=== PATIENT | female | born 1995 | race Caucasian/White ===

== ENCOUNTER → 2021-02-17 16:30 | Outpatient (CLI) | payer OTHER, SELFPAY ==
[2021-02-17 18:11] LABS: HCG,Quantitative 14605 mIU/ml (0-5.42)
== END ==
PROVIDERS: Visit Provider Obstetrics & Gynecology
DX: Z34.90 Encounter for supervision of normal pregnancy, unspecified, unspecified trimester (principal)
CPT/HCPCS: 36415; 84702

== ENCOUNTER → 2021-02-19 11:07 | Outpatient (CLI) | payer OTHER, SELFPAY ==
[2021-02-19 12:56] LABS: HCG,Quantitative 19558 mIU/ml (0-5.42)
== END ==
PROVIDERS: Visit Provider Obstetrics & Gynecology
DX: Z34.90 Encounter for supervision of normal pregnancy, unspecified, unspecified trimester (principal)
CPT/HCPCS: 36415; 84702

== ENCOUNTER → 2021-03-04 12:46 | Outpatient (CLI) | payer OTHER, SELFPAY ==
--- NOTE | 2021-03-04 12:47 | US_ITS ---
PROCEDURE: US OB <= 14 WEEKS FETUS CLINICAL INDICATION: Dates COMPARISON: No exams were available for comparison FINDINGS: An intrauterine gestational sac is present with a pole with a crown-rump length of 1.24cm correlating to gestational age of 7weeks 4days. heart tones are present with an FHR of 163bpm. Yolk sac is noted. IMPRESSION: Live IUP at 7 weeks 4 days. Estimated due date by Ultrasound is 10/17/2021 Dictated by: Venkata Rogers MD 03/04/2021 17:48 Venkata Rogers MD in [place] 03/04/2021 17:48
== END ==
PROVIDERS: PCP Family Medicine; Visit Provider Obstetrics & Gynecology
DX: Z34.90 Encounter for supervision of normal pregnancy, unspecified, unspecified trimester (principal)
CPT/HCPCS: 76801

== ENCOUNTER → 2021-03-06 09:43 | Outpatient (CLI) | payer OTHER, SELFPAY | PROVIDERS: Visit Provider Obstetrics & Gynecology | DX: R09.89 Other specified symptoms and signs involving the circulatory and respiratory systems (principal) | CPT/HCPCS: 36415; 84443 ==

== ENCOUNTER 2021-03-16 10:20 | Emergency (ER) | payer OTHER, SELFPAY ==
[2021-03-16 10:21] VITALS: BP 127/77; PULSE 104; RESP 18; TEMP 36.9; O2SAT 99; BMI 30.9
--- NOTE | 2021-03-16 10:32 | XR_ITS ---
PROCEDURE: XR CHEST PORTABLE CLINICAL HISTORY: RUQ pain Right-sided chest pain COMPARISON: No exams were available for comparison FINDINGS: The cardiomediastinal silhouette and pulmonary vascularity are within normal limits. The lungs are clear without infiltrates, suspicious nodules, or pleural effusions. No acute bony abnormalities. IMPRESSION: No acute findings. Dictated by: Venkata Rogers MD 03/16/2021 10:55 Venkata Rogers MD in [place] 03/16/2021 10:55
--- NOTE | 2021-03-16 10:59 | ECG_ITS ---
APPROVED REPORT Exam: Resting ECG HR:91 bpm ECG Measurements Heart Rate 91 AXES AL 142 P -6 QRSd 88 QRS -34 QT 342 T 7 QTc 420 Conclusion Normal sinus rhythm Left axis deviation Low voltage QRS Abnormal ECG Electronically signed by : Schuyler Rivero, 03/16/2021 17:43:36
--- NOTE | 2021-03-16 11:04 | HMH.EDGENADL ---
ED Disposition Clinical Impression: RUQ abdominal pain Disposition: Home, Self-Care Condition on Discharge: Good Instructions: DI for Acute Abdominal Pain Referrals: Frances Bates [Primary Care Provider] - Time of Disposition: 12:19 - Critical Care Critical Care Time: No Attestation: On 03/16/21, the high probability of a clinically significant, sudden or life threatening deterioration of the following system(s) required my full and direct attention, intervention and personal management. The time I documented below is in addition to time spent performing reported procedures but includes the following listed in this critical care notation. Medical Decision Making - Medical Records Medical records reviewed: Yes: I reviewed the patient's medical records. - Nabil Inquiry Pt receiving controlled substance: No Vital Signs: 03/16/21 10:21 Temperature 98.4 F Temperature Source Oral Pulse Rate [Right Radial] 104 H Respiratory Rate 18 Blood Pressure [Right Arm] 127/77 Blood Pressure Mean [Right Arm] 93 Blood Pressure Source [Right Arm] Automatic Cuff Blood Pressure Position [Right Arm] Sitting 02 Sat by Pulse Oximetry 99 Oxygen Delivery Method Room Air - Lab Data Lab Results 03/16/21 10:55: WBC 10.5, RBC 4.70, Hgb 13.9, Hct 42.9, MCV 91.3, MCH 29.6, MCHC 32.4, RDW 13.4, Plt Count 227, MPV 8.3, Neut % (Auto) 75.5, Lymph % (Auto) 19.5, [place] % (Auto) 3.7, Eos % (Auto) 1.0, Baso % (Auto) 0.3, Neut # (Auto) 8.0 H, Lymph # (Auto) 2.1, [place] # (Auto) 0.4, Eos # (Auto) 0.1, Baso # (Auto) 0.0 03/16/21 10:55: Sodium 134 L, Potassium 3.6, Chloride 105, Carbon Dioxide 23, Anion Gap 9.6, BUN 4 L, Creatinine 0.50 L, Estimated Creat Clear 226, Estimated GFR 153, Est GFR ( Amer) 185, Glucose 95, Calcium 9.8, Total Bilirubin 0.5, AST 27, ALT 22, Alkaline Phosphatase 83, Total Protein 7.1, Albumin 4.1, Globulin 3.0, Albumin/Globulin Ratio 1.4 03/16/21 10:55: Troponin I < 0.01, Lipase 56 Result diagrams: 03/16/21 10:55 03/16/21 10:55 Orders (Tests/Meds): ORDERS Category Date Time Status US RUQ [US abdomen limited] Stat Exams 03/16/21 12:14 Ordered Troponin I Q3H Lab 03/16/21 13:45 Ordered Troponin I Q3H Lab 03/16/21 16:45 Ordered EKG Request [ECG Request by /Tova] Stat Y 03/16/21 10:32 Ordered Medical Decision Narrative: In summary this is a 25-year-old G1, P0 female presenting to the emergency department with right upper quadrant pain. Patient clinically stable on arrival. Vital signs within normal limits. Differential diagnoses include biliary tract obstruction, reflux, musculoskeletal pain. No left-sided chest pain to suggest ACS, myocarditis. She has minimal pain with inspiration, but is not dyspneic. PERC negative Initial laboratory results are reassuring. No leukocytosis. No elevation in bilirubin, alk phos, AST or ALT. Lipase within normal limits. Chest x-ray does not show pneumonia or other abnormality in the thorax. Right upper quadrant ultrasound obtained. Reassuring. No biliary ductal dilation or gallstones. Reassessment patient's pain significantly improved. She was able to tolerate oral intake. No nausea or vomiting. Counseled to monitor her symptoms and follow-up with her PCP. Stable for discharge. General Adult HPI - General Chief complaint: PAIN Stated complaint: pain, upper stomach and goes around to back Time Seen by Provider: 03/16/21 10:24 Mode of Arrival: Ambulatory Limitations: No Limitations Description of Symptoms (Recalled from ER Triage Doc. by RN): pt reports woke up yesterday morning with pain in R upper quadrant area R upper R breast, pt reports pain radiates around to R upper back. Pt reports pain is intermittent in nature. Pt denies cough, SOA, n/v. Pt reports she is 9 weeks , states Dr. Pandey advised her to get evaluated in ER for pain. - History of Present Illness HPI narrative: 25-year-old female presenting to the emergency department
[2021-03-16 11:13] LABS: Basophils % 0.3 % (0.1-2.0); Eosinophils # 0.1 K/mm3 (0.0-0.4); Hematocrit 42.9 % (37.0-47.0); Hemoglobin 13.9 g/dL (12.2-16.2); Lymphocytes # 2.1 K/mm3 (0.7-4.5); Lymphocytes % 19.5 % (10-50); Mean Corpuscular HGB Conc 32.4 g/dL (31.8-35.4); Mean Corpuscular Hemoglobin 29.6 pg (27.0-31.2); Mean Corpuscular Volume 91.3 fl (81-99); Mean Platelet Volume 8.3 fl (7.4-10.4); Monocytes # 0.4 K/mm3 (0.1-1.0); Monocytes % 3.7 % (1.7-9.3); Neutrophils % 75.5 % (37.0-80.0); Platelet Count 227 K/mm3 (142-424); Red Cell Distribution Width 13.4 % (11.5-17.5); White Blood Count 10.5 K/mm3 (4.8-10.8)
[2021-03-16 11:24] LABS: Lipase 56 U/L (23-300)
[2021-03-16 11:25] LABS: Alanine Aminotransferase 22 U/L (12-78); Albumin Level 4.1 g/dl (3.5-5.0); Albumin/Globulin Ratio 1.4 (1.1-1.8); Alkaline Phosphatase 83 U/L (38-126); Anion Gap 9.6 mEq/L (5-15); Aspartate Amino Transferase 27 U/L (14-36); Bilirubin,Total 0.5 mg/dl (0.2-1.3); Blood Urea Nitrogen 4 mg/dl (7-17); Calcium 9.8 mg/dl (8.4-10.2); Carbon Dioxide 23 mmol/L (22.0-30.0); Chloride 105 mmol/L (98-107); Creatinine Clearance Estimated 226 mL/min (50-200); Estimated Glomerular Filt Rate 153 ml/min (>60); GFR (African American) 185 ML/MIN (>60); Glucose 95 mg/dl (74-100); Potassium 3.6 mmoL/L (3.5-5.1); Sodium 134 mmol/L (136-145); Total Protein,Serum 7.1 g/dl (6.3-8.2)
[2021-03-16 11:49] LABS: Troponin I < 0.01 ng/ml (0.00-0.034)
--- NOTE | 2021-03-16 12:14 | US_ITS ---
PROCEDURE: US ABDOMEN LIMITED CLINICAL INDICATION: RUQ pain COMPARISON: No exams were available for comparison FINDINGS: PANCREAS: Unremarkable. No obvious mass or abnormal fluid collection. No ductal dilatation LIVER: No focal liver lesions demonstrated. Homogeneous echogenicity. No intrahepatic biliary ductal dilatation evident. There is appropriate direction of blood flow within a non dilated portal vein RIGHT KIDNEY: Unremarkable. Normal size and echogenicity. No hydronephrosis GALLBLADDER: No gallstones, gallbladder wall thickening, pericholecystic fluid, or biliary dilatation. IMPRESSION: Unremarkable limited abdominal ultrasound as detailed above disc Dictated by: Venkata Rogers MD 03/16/2021 13:18 Venkata Rogers MD in [place] 03/16/2021 13:18
--- NOTE | 2021-03-16 12:18 | PC.NURSE ---
PT GOING TO US
--- NOTE | 2021-03-16 12:29 | PC.NURSE ---
pt to ultrasound
--- NOTE | 2021-03-16 12:49 | PC.NURSE ---
pt return from ultrasound
[2021-03-16 12:59] VITALS: BP 126/81; PULSE 70; RESP 18; TEMP 36.9; O2SAT 99
== END 2021-03-16 12:59 | disposition home or self-care (01) ==
PROVIDERS: Emergency Provider Emergency Medicine; PCP Family Medicine
DX: R10.11 Right upper quadrant pain (principal); Z3A.09 9 weeks gestation of pregnancy
CPT/HCPCS: 71045; 76705; 80053; 83690; 84484; 85025; 93005; 99283

== ENCOUNTER → 2021-05-05 08:48 | Outpatient (CLI) | payer OTHER, SELFPAY ==
[2021-05-05 09:47] LABS: Basophils % 0.2 % (0.1-2.0); Eosinophils # 0.2 K/mm3 (0.0-0.4); Eosinophils % 2.5 % (0.1-12.0); Hematocrit 38.6 % (37.0-47.0); Hemoglobin 13.3 g/dL (12.2-16.2); Lymphocytes # 1.8 K/mm3 (0.7-4.5); Lymphocytes % 20.9 % (10-50); Mean Corpuscular HGB Conc 34.5 g/dL (31.8-35.4); Mean Corpuscular Hemoglobin 30.4 pg (27.0-31.2); Mean Corpuscular Volume 88.2 fl (81-99); Mean Platelet Volume 8.9 fl (7.4-10.4); Monocytes # 0.5 K/mm3 (0.1-1.0); Monocytes % 5.5 % (1.7-9.3); Neutrophils % 70.9 % (37.0-80.0); Platelet Count 163 K/mm3 (142-424); Red Blood Count 4.37 M/mm3 (4.20-5.40); Red Cell Distribution Width 13.2 % (11.5-17.5); White Blood Count 8.4 K/mm3 (4.8-10.8)
[2021-05-06 09:10] LABS: HIV Screen 4th Generation wRfx Non Reactive (Non Reactive)
[2021-05-06 09:13] LABS: Rubella Antibodies, IgG 8.71 index (Immune >0.99)
[2021-05-06 10:12] LABS: Hepatitis B Surface Antigen Negative (Negative); Hepatitis C Antibody <0.1 s/co ratio (0.0-0.9); Rapid Plasma Reagin Ab Titer Non Reactive (NonRea<1:1)
== END ==
PROVIDERS: Visit Provider Obstetrics & Gynecology
DX: Z34.90 Encounter for supervision of normal pregnancy, unspecified, unspecified trimester (principal)
CPT/HCPCS: 36415; 85025; 86592; 86703; 86762; 86850; 87340; 87380; G0432

== ENCOUNTER → 2021-06-02 14:16 | Outpatient (CLI) | payer OTHER, SELFPAY ==
--- NOTE | 2021-06-02 14:16 | US_ITS ---
PROCEDURE: US OB >= 14 WEEKS FETUS CLINICAL INDICATION: OB complete Anatomy exam COMPARISON: US US OB <= 14 WEEKS FETUS from 03/04/2021 FINDINGS: Single live fetus is present in cephalic presentation. heart and body motion noted. Cervix is closed measuring 4 cm. Placenta is posterior and grade 1. Complete survey performed and was unremarkable on the submitted images as in PACS. No discrete anomalies identified on survey imaging by technologist. Active fetus. Three-vessel cord with satisfactory umbilical cord insertion. 4- chamber heart noted. Survey of brain & ventricles Unremarkable. Face and neck survey unremarkable. Diaphragm and chest views unremarkable. Abdomen: Both kidneys noted and unremarkable. Stomach noted and satisfactory. Spine: Survey of the spine satisfactory with no anomalies identified nor imaged. Both arms and legs noted. Amniotic Fluid: Adequate. Maternal adnexa: No significant findings. Measurements: Average ultrasound age 20weeks 2days. Gestational Age 20weeks 2days Estimated due date by ultrasound age 1210/18/2021. Estimated weight 350g BPD = 20weeks 3days OFD = 20weeks 3days HC = 19weeks 5days AC = 20weeks 3days FL = 20weeks 4days Growth Percentile= 42% Heart Rate = 147bpm Cerebellum = 20weeks 4days Humerus = 20weeks 3days HC/AC is 1.13 CI is 0.79 FL/BPD is 0.71 FL/AC is 0.22 IMPRESSION: Live IUP in cephalic presentation with an average ultrasound age of 20 weeks 2 days. No obvious anomalies. Please see above for detail. Dictated by: Venkata Rogers MD 06/02/2021 18:33 Venkata Rogers MD in [place] 06/02/2021 18:33
== END ==
PROVIDERS: PCP Family Medicine; Visit Provider Obstetrics & Gynecology
DX: Z34.91 Encounter for supervision of normal pregnancy, unspecified, first trimester (principal)
CPT/HCPCS: 76805

== ENCOUNTER → 2021-07-15 10:30 | Outpatient (CLI) | payer OTHER, SELFPAY ==
[2021-07-15 11:19] LABS: Glucose,Fasting 87 mg/dl (74-100)
[2021-07-15 13:22] LABS: Glucose 1 Hour 128 mg/dL (74-100)
== END ==
PROVIDERS: Visit Provider Obstetrics & Gynecology
DX: Z34.90 Encounter for supervision of normal pregnancy, unspecified, unspecified trimester (principal)
CPT/HCPCS: 36415; 82951

== ENCOUNTER 2021-07-25 11:51 | Outpatient (CLI) | payer OTHER, SELFPAY ==
[2021-07-25 12:02] VITALS: BP 128/92; PULSE 88; RESP 18; TEMP 36.8; O2SAT 100; BMI 33.6
[2021-07-25 12:31] LABS: Appearance,Urine CLEAR (Clear); Bilirubin,Urine Negative (Negative); Blood, Urine Negative (Negative); Color,Urine YELLOW (Yellow); Glucose,Urine (UA) Negative (Negative); Ketones,Urine TRACE (Negative); Leukocyte Esterase,Urine Negative (Negative); Microscopic, Urine URINE MICROSCOPIC (MICROSCOPIC); Nitrate,Urine Negative (Negative); Protein,Urine Negative (Negative); Specific Gravity, Urine 1.015 (1.005-1.030)
[2021-07-25 12:39] LABS: Amorphous Sediment,Urine Trace /lpf; WBC,Urine Occasional #/hpf (0-3)
[2021-07-25 12:43] LABS: Barbiturates Screen,Urine Negative ng/ml (<200)
[2021-07-25 12:44] LABS: Amphetamine/Metha Screen,Urine Negative ng/ml (<1000); Benzodiazepines Screen,Urine Negative ng/ml (<200)
[2021-07-25 12:45] LABS: Cannabinoid Screen,Urine Negative ng/ml (<50)
[2021-07-25 12:46] LABS: Cocaine Screen,Urine Negative ng/ml (<300); Methadone Screen,Urine Negative ng/ml (<300)
[2021-07-25 12:47] LABS: Opiate Screen,Urine Negative ng/ml (<300)
[2021-07-25 12:48] LABS: Phencyclidine Screen,Urine Negative ng/ml (<25)
[2021-07-25 13:12] VITALS: BMI 31.2
== END 2021-07-25 12:55 | disposition home or self-care (01) ==
LOC: OBOUT 11:53 → OB 11:54
PROVIDERS: PCP Family Medicine; Visit Provider Nurse Practitioner Obstetrics & Gynecology
DX: O36.8130 Decreased fetal movements, third trimester, not applicable or unspecified (principal); Z3A.28 28 weeks gestation of pregnancy
CPT/HCPCS: 59025; 80305; 81001; G0463

== ENCOUNTER → 2021-09-16 09:25 | Outpatient (CLI) | payer OTHER, SELFPAY ==
--- NOTE | 2021-09-16 09:26 | US_ITS ---
PROCEDURE: US OB BIOPHYSICAL PROFILE CLINICAL INDICATION: Hypertension TECHNIQUE: FINDINGS: The following parameters are obtained: Single live fetus is present in cephalic presentation. Placenta is posterior and fundal in implantation and grade 2 Average ultrasound age is Average 33weeks 6days Estimated due date by ultrasound is 10/29/2021. Estimated weight is 2,215g. This is 7th percentile indicating intrauterine growth restriction BPD: 35weeks 5days OFD: 35weeks 5days HC: 34 weeks 2 days AC: 32 weeks 5 days FL: 34 weeks 6 days heart rate: 150bpm bpm. HC/AC: 1.07 Cephalic index: 0.75 FL/BPD: 0.81 FL/AC: 0.24 Amniotic fluid index: 10.07cm Qualitative AFV: 2 breathing movements: 2 Gross body movements: 2 Tone: 2 Biophysical profile score: 8 IMPRESSION: Live IUP in cephalic presentation at 33 weeks 6 days. Estimated weight is 2215 g which is 7th percentile indicating intrauterine growth restriction. Posterior and fundal grade 2 placenta Normal amniotic fluid index Biophysical profile 8 of 8 Dictated by: Venkata Rogers MD 09/17/2021 08:48 Venkata Rogers MD in [place] 09/17/2021 08:48
== END ==
PROVIDERS: Visit Provider Obstetrics & Gynecology
DX: Z34.90 Encounter for supervision of normal pregnancy, unspecified, unspecified trimester (principal)
CPT/HCPCS: 76816; 76819

== ENCOUNTER → 2021-09-21 17:04 | Outpatient (CLI) | payer OTHER, SELFPAY | PROVIDERS: Visit Provider Obstetrics & Gynecology | DX: Z34.90 Encounter for supervision of normal pregnancy, unspecified, unspecified trimester (principal) | CPT/HCPCS: 86403 ==

== ENCOUNTER → 2021-09-25 09:12 | Outpatient (CLI) | payer OTHER, SELFPAY ==
--- NOTE | 2021-09-25 09:13 | US_ITS ---
PROCEDURE: US OB BIOPHYSICAL PROFILE CLINICAL INDICATION: BPP TECHNIQUE: FINDINGS: Biometric measurements were not performed. There is a single live fetus which is in cephalic presentation. heart and body motion noted. Cervix is closed measuring 3 cm. The placenta is posterior and grade 2. No previa or abruption. Amniotic fluid index: 12.03cm Qualitative AFV: 2 breathing movements: 2 Gross body movements: 2 Tone: 2 Biophysical profile score: 8 IMPRESSION: Biophysical profile 8 of 8. ZOILA normal at 12 cm. Single live fetus in cephalic presentation. Posterior grade 2 placenta Dictated by: Venkata Rogers MD 09/25/2021 12:48 Venkata Rogers MD in [place] 09/25/2021 12:48
== END ==
PROVIDERS: PCP Family Medicine; Visit Provider Obstetrics & Gynecology
DX: O13.9 Gestational [pregnancy-induced] hypertension without significant proteinuria, unspecified trimester (principal)
CPT/HCPCS: 76819

== ENCOUNTER → 2021-10-04 12:36 | Outpatient (CLI) | payer OTHER, SELFPAY ==
[2021-10-04 13:14] LABS: Basophils % 0.3 % (0.1-2.0); Eosinophils # 0.2 K/mm3 (0.0-0.4); Eosinophils % 1.5 % (0.1-12.0); Hematocrit 36.9 % (37.0-47.0); Hemoglobin 11.9 g/dL (12.2-16.2); Lymphocytes # 2.1 K/mm3 (0.7-4.5); Lymphocytes % 19.3 % (10-50); Mean Corpuscular HGB Conc 32.2 g/dL (31.8-35.4); Mean Corpuscular Hemoglobin 28.7 pg (27.0-31.2); Mean Corpuscular Volume 89.1 fl (81-99); Mean Platelet Volume 10.9 fl (7.4-10.4); Monocytes # 0.5 K/mm3 (0.1-1.0); Monocytes % 4.3 % (1.7-9.3); Neutrophils % 74.7 % (37.0-80.0); Platelet Count 198 K/mm3 (142-424); Red Blood Count 4.14 M/mm3 (4.20-5.40); Red Cell Distribution Width 13.5 % (11.5-17.5); White Blood Count 10.7 K/mm3 (4.8-10.8)
[2021-10-04 13:30] LABS: Chloride 106 mmol/L (98-107); Potassium 3.7 mmoL/L (3.5-5.1); Sodium 135 mmol/L (136-145)
[2021-10-04 13:33] LABS: Alanine Aminotransferase 16 U/L (12-78); Albumin Level 3.3 g/dl (3.5-5.0); Albumin/Globulin Ratio 1.1 (1.1-1.8); Alkaline Phosphatase 227 U/L (38-126); Anion Gap 9.7 mEq/L (5-15); Aspartate Amino Transferase 22 U/L (14-36); Bilirubin,Total 0.3 mg/dl (0.2-1.3); Blood Urea Nitrogen 4 mg/dl (7-17); Calcium 9.2 mg/dl (8.4-10.2); Carbon Dioxide 23 mmol/L (22.0-30.0); Estimated Glomerular Filt Rate 152 ml/min (>60); GFR (African American) 183 ML/MIN (>60); Globulin 2.9 g/dL (1.3-3.2); Glucose 82 mg/dl (74-100); Total Protein,Serum 6.2 g/dl (6.3-8.2)
== END ==
PROVIDERS: PCP Family Medicine; Visit Provider Obstetrics & Gynecology
DX: Z01.812 Encounter for preprocedural laboratory examination (principal); Z20.822 Contact with and (suspected) exposure to COVID-19
CPT/HCPCS: 36415; 80053; 85025; C9803; U0003; U0005

== ENCOUNTER 2021-10-06 04:48 | Inpatient (IN) | payer OTHER, SELFPAY ==
--- NOTE | 2021-10-02 08:18 | SUR.PREOP ---
LM informing patient to come in for LABS on Sat or Sun
[2021-10-06] VITALS (7 sets, daily range): BP systolic 127–149; BP diastolic 81–97; PULSE 64–103; RESP 16–20; TEMP 36.7–37.3; O2SAT 98–100; BMI 30.4; BMI 32.4
[2021-10-06 05:54] LABS: Coronavirus 19, PCR Not Detected (NotDetected); Influenza A, PCR Not Detected (NotDetected); Influenza B, PCR Not Detected (NotDetected)
[2021-10-06 05:54] LABS: Microscopic, Urine URINE MICROSCOPIC (MICROSCOPIC)
[2021-10-06 06:07] LABS: Basophils # 0.1 K/mm3 (0-0.2); Basophils % 0.4 % (0.1-2.0); Eosinophils # 0.2 K/mm3 (0.0-0.4); Eosinophils % 1.2 % (0.1-12.0); Hematocrit 34.2 % (37.0-47.0); Hemoglobin 11.4 g/dL (12.2-16.2); Lymphocytes # 2.8 K/mm3 (0.7-4.5); Lymphocytes % 20.9 % (10-50); Mean Corpuscular HGB Conc 33.3 g/dL (31.8-35.4); Mean Corpuscular Hemoglobin 29.1 pg (27.0-31.2); Mean Corpuscular Volume 87.3 fl (81-99); Mean Platelet Volume 11.6 fl (7.4-10.4); Monocytes # 0.6 K/mm3 (0.1-1.0); Monocytes % 4.8 % (1.7-9.3); Neutrophils # 9.7 K/mm3 (1.8-7.8); Neutrophils % 72.7 % (37.0-80.0); Platelet Count 200 K/mm3 (142-424); Red Blood Count 3.92 M/mm3 (4.20-5.40); Red Cell Distribution Width 13.9 % (11.5-17.5); White Blood Count 13.4 K/mm3 (4.8-10.8)
[2021-10-06 06:15] LABS: Appearance,Urine CLEAR (Clear); Bilirubin,Urine Negative (Negative); Blood, Urine Negative (Negative); Color,Urine YELLOW (Yellow); Glucose,Urine (UA) Negative (Negative); Ketones,Urine 1+ (Negative); Leukocyte Esterase,Urine 1+ (Negative); Nitrate,Urine Negative (Negative); Protein,Urine Negative (Negative); Urobilinogen,Urine 0.2 EU/dl (0.2)
[2021-10-06 07:04] LABS: Bacteria,Urine 1+ /lpf; RBC,Urine Occasional #/hpf (0-3)
[2021-10-06 07:05] LABS: Blood Urea Nitrogen 4 mg/dl (7-17); Calcium 9.3 mg/dl (8.4-10.2); Carbon Dioxide 22 mmol/L (22.0-30.0); Chloride 107 mmol/L (98-107); Creatinine Clearance Estimated 235 mL/min (50-200); Estimated Glomerular Filt Rate 152 ml/min (>60); GFR (African American) 183 ML/MIN (>60); Glucose 80 mg/dl (74-100); Sodium 135 mmol/L (136-145)
[2021-10-06 07:35] LABS: Anion Gap 9.8 mEq/L (5-15); Potassium 3.8 mmoL/L (3.5-5.1)
--- NOTE | 2021-10-06 07:50 | HMH.HP ---
*Admission Date: 10/06/21 *Chief complaint: scheduled c section *History of present illness: 26 yo G1 @ 38 01/04 complicated by gestational hypertension and growth restriction current estimate of EFW 7% CPD on exam and patient declined a trial of labor Rh negative maternal status but rhogam deferred because cell free DNA showed negative rh mild anemia on admission [facility] History I have reviewed the patient's past medical history: Yes *Have you ever received a pneumonia vaccine?: No *Have you received a flu vaccine this season?: No Other Surgeries: No: Amputation: No Fractures: No - *Social History Smoking Status: Never smoker Alcohol Intake: never Substance Use Type: denies use *Occupational Status:: employed *Travel in the last 8 weeks: None Family Hx:: Hypertension, Hyperlipidemia, Thyroid Disorder Para: 0 Review of Systems - Review of Systems Review of systems:: pertinent systems reviewed and negative unless documented below - *Genitourinary Denies abnormal vaginal bleeding Meds Home Medications Medication Instructions Recorded Confirmed Type ondansetron 4 mg disintegrating 4 mg PO Q4H PRN #30 tab 03/06/21 10/06/21 Rx tablet docosahexaenoic acid 200 mg capsule 200 mg PO DAILY 05/05/21 10/06/21 History Labetalol HCl 100 mg PO BID 10/06/21 10/06/21 History Allergies Allergy/AdvReac Type Severity Reaction Status Date / Time egg Allergy Mild vomiting Verified 10/01/21 10:59 and diarrhea Exam Vital signs and Labs for Last 24 Hours: Temp Pulse Resp BP Pulse Ox 99.1 F 103 H 18 127/81 100 10/06/21 06:11 10/06/21 06:11 10/06/21 06:11 10/06/21 06:11 10/06/21 06:11 Laboratory Results - last 24 hr 10/06/21 05:25: WBC 13.4 H D, RBC 3.92 L, Hgb 11.4 L, Hct 34.2 L, MCV 87.3, MCH 29.1, MCHC 33.3, RDW 13.9, Plt Count 200, MPV 11.6 H, Neut % (Auto) 72.7, Lymph % (Auto) 20.9, [place] % (Auto) 4.8, Eos % (Auto) 1.2, Baso % (Auto) 0.4, Neut # (Auto) 9.7 H, Lymph # (Auto) 2.8, [place] # (Auto) 0.6, Eos # (Auto) 0.2, Baso # (Auto) 0.1 10/06/21 05:25: Sodium 135 L, Potassium 3.8, Chloride 107, Carbon Dioxide 22, Anion Gap 9.8, BUN 4 L, Creatinine 0.50 L, Estimated Creat Clear 235, Estimated GFR 152, Est GFR ( Amer) 183, Glucose 80, Calcium 9.3 10/06/21 05:25: Blood Type A Negative, Antibody Screen Negative 10/06/21 05:25: Urine Color Yellow, Urine Appearance Clear, Urine pH 6.0, Ur Specific [place] 1.020, Urine Protein Negative, Urine Glucose (UA) Negative, Urine Ketones 1+, Urine Blood Negative, Urine Nitrate Negative, Urine Bilirubin Negative, Urine Urobilinogen 0.2, Ur Leukocyte Esterase 1+ A, Urine RBC Occasional, Urine WBC 10-20, Ur Squamous Epith Cells 3-5, Urine Bacteria 1+ 10/06/21 05:30: SARS-CoV-2 (PCR) Not detected, Influenza A Untype (PCR) Not detected, Influenza Type B (PCR) Not detected I & O for Last 24 hours: Intake & Output 10/03/21 10/04/21 10/05/21 10/06/21 11:59 11:59 11:59 11:59 Weight 189 lb - Constitutional no acute distress - *Routine HEENT Exam Head: Present: normocephalic Eye: Present: EOMI ENT: Present: mucous membranes moist - *Routine Neck Exam Present: supple. Absent: lymphadenopathy - *Routine Respiratory Exam Present: CTA bilaterally - *Routine Cardiovascular Exam Present: RRR - *Routine Abdominal Exam Present: soft, normoactive bowel sounds. Absent: tenderness - *Routine Rectal Exam Rectal:: deferred - *Routine Genitalia Exam Genitalia:: other Comment:: narrow pelvic outlet - *Routine Extremities Exam Absent: cyanosis, clubbing, edema - *Routine Skin Exam Present: warm. Absent: rash - *Routine Neurological Exam Present: alert, oriented X3 Assessment and Plan (1) 38 weeks gestation of Status: Acute Category: Medical Code(s): Z3A.38 - 38 weeks gestation of (2) Gestational hypertension Status: Acute Category: Medical Code(s): O13.9 - Gestation
[2021-10-06 07:57] LABS: Amphetamine/Metha Screen,Urine Negative ng/ml (<1000); Barbiturates Screen,Urine Negative ng/ml (<200); Benzodiazepines Screen,Urine Negative ng/ml (<200); Cannabinoid Screen,Urine Negative ng/ml (<50); Cocaine Screen,Urine Negative ng/ml (<300); Methadone Screen,Urine Negative ng/ml (<300); Opiate Screen,Urine Negative ng/ml (<300); Phencyclidine Screen,Urine Negative ng/ml (<25)
--- NOTE | 2021-10-06 08:57 | P.PN_ITS ---
[facility] Anesthesia Record Part I Intake, IV Amount: 2,500 Estimated blood loss (mL): 700 Urine output (mL): 100 Blood Pressure: 138/94 SaO2: 98 Pulse Rate: 67 Respiratory Rate: 16 Temperature: 98.1 F Patient is:: Awake, Stable Stable to PACU at:: 08:53
--- NOTE | 2021-10-06 08:57 | HMH.ANESCL ---
[facility] Anesthesia Checklist - Patient Identification Patient Identification: Arm Band, Verbal (Name & ) - Structural Data Admitted From: Home Planned Operative Procedure/s: C section Consent for Planned Operative Procedure(s) Verified: Yes Verified Documents: Surgical Consent - NPO Status Verified Time NPO: 19:00 - Chart Verification Results Verified: CBC - Cardiovascular Assessment Heart Sounds: S1 & S2 - Airway Assessment C-Spine Mobility Assessed: Yes TMJ Mobility Assessed: Yes Dentition: Good Dentition - Neurological Assessment Level of Consciousness: Awake, Alert, Appropriate - Anesthesia Plan Anesthesia Risk discussed: Yes ASA Class: II Anesthesia Type: Spinal [facility] History I have reviewed the patient's past medical history: Yes *Have you ever received a pneumonia vaccine?: No *Have you received a flu vaccine this season?: No Anesthesia experience/problems:: none Other Surgeries: No: Amputation: No Fractures: No - *Social History Smoking Status: Never smoker Alcohol Intake: never Substance Use Type: denies use *Occupational Status:: employed *Travel in the last 8 weeks: None Family Hx:: Hypertension, Hyperlipidemia, Thyroid Disorder Para: 0
--- NOTE | 2021-10-06 08:59 | P.OP_ITS ---
Date of procedure: 10/06/21 Pre-op Diagnosis:: 1. 38 3/7 2. growth restriction 7% 3. Gestational hypertension 4. Maternal CPD Post-op Diagnosis:: same Procedure performed:: Primary C Section Surgeon:: Marisabel Pandey MD Electromyographic Technician(s):: Angel Delcid COOLING ROOM ATTENDANT:: Other Anesthesia: spinal Estimated blood loss (mL): 700 Operative findings:: vigorous male infant in vertex presentation nuchal cord x 1 meconium stained amniotic fluid Operative note:: The patient was taken to the OR and spinal was administered without difficulty. She was prepped and draped in normal sterile fashion. A pfannenstiel skin incision was made with the scalpel and carried down to the fascia. The fascia was incised in the midline and sharply dissected off the rectus muscles. The muscles were in the midline and the peritoneum was entered sharply and extended bluntly. The Ricco-O self retaining retractor was placed in the abdomen and a bladder flap was created. The uterus was incised in the lower uterine segment in a transverse fashion and extended bluntly. Amniotomy was performed and meconium stained amniotic fluid noted. The was delivered in controlled fashion, without complication or shoulder dystocia. A nuchal cord x 1 was reduced at time of delivery. The infant was vigorous at and handed to awaiting sow manager for evaluation after cord was clamped and cut. Cord blood was collected and a cord segment was preserved. The placenta was manually extracted and noted to be intact. The uterus was repaired with 0- vicryl in a running/locked fashion. The peritoneum was closed with 2-0 vicryl in a running fashion. The fascia was closed with #1 vicryl in a running fashion. The subcutaneous fat was closed with 2-0 vicryl in an interrupted fashion. The skin was closed with 2-0 stratafix. The patient tolerated the procedure well. Sponge, lap, needle and instrument counts were correct x 2. TAP block was placed by anesthesia. She was taken to PACU awake and in stable condition. Condition: stable Disposition: PACU Specimens:: placenta Complications:: none
[2021-10-06 10:26] LABS: Microscopic,Cath URINE MICROSCOPIC (MICROSCOPIC)
[2021-10-06 10:40] LABS: Appearance,Urine/Cath CLEAR (Clear); Bilirubin,Cath Negative (Negative); Blood, Urine/Cath Negative (Negative); Color,Urine/Cath YELLOW (Yellow); Glucose,Urine/Cath (UA) Negative (Negative); Ketones,Urine/Cath 1+ (Negative); Leukocyte Esterase,Cath Negative (Negative); Nitrate,Cath Negative (Negative); PH,Urine/Cath 7.5 (5.0-8.5); Protein,Urine/Cath Negative (Negative); Specific Gravity, Urine/Cath 1.015 (1.005-1.030); Urobilinogen,Cath 0.2 EU/dl (0.2)
[2021-10-06 11:06] LABS: RBC,Urine/Cath Occasional # /hpf (0-3); Squamous Epithelial Ur./Cath Occasional #/hpf (0-5)
--- NOTE | 2021-10-06 12:30 | HMH.ANESII ---
[facility] Anesthesia Record Part II Discharge Time: 09:23 Destination: Obstetric PACU nurse assessment reviewed?: Yes Patient Condition:: Good Anesthesia Complications:: None none Swallowing reflex intact?: Yes Cyanosis?: No Blood Pressure: 149/92 Pulse Rate: 68 Temperature: 98.0 F Mental Status: Alert & Oriented Pain level:: 0 Nausea and/or vomitting:: None Intake, IV Amount: 0
--- NOTE | 2021-10-07 07:18 | HMH.PHAVTE ---
[facility] Pharmacy VTE Monitoring - Patient Demographics Admission date: 10/06/21 Report Date: 10/07/21 Time: 07:18 Allergies/Adverse Reactions: Patient Allergies egg Allergy (Mild, Verified 10/01/21 10:59) vomiting and diarrhea Height: 1.63 m Weight: 85.729 kg Patient Problems: Current Active Problems Anemia affecting (Acute) 38 weeks gestation of (Acute) growth restriction (Acute) Gestational hypertension (Acute) Rh negative status during (Acute) - VTE Risk Labs: VTE Related Lab Results Hgb 11.4 g/dL (12.2-16.2) L 10/06/21 05:25 Hct 34.2 % (37.0-47.0) L 10/06/21 05:25 Plt Count 200 K/mm3 (142-424) 10/06/21 05:25 BUN 4 mg/dl (7-17) L 10/06/21 05:25 Creatinine 0.50 mg/dl (0.52-1.04) L 10/06/21 05:25 Estimated Creat Clear 235 mL/min (50-200) 10/06/21 05:25 - Prophylaxis VTE Prophylaxis Ordered?: Yes Types of VTE Prophylaxis: IPCS Thigh High Location of Applied Device: Bilateral Lower Extremeties
[2021-10-07 07:19] LABS: Hematocrit 29.6 % (37.0-47.0); Hemoglobin 9.6 g/dL (12.2-16.2)
--- NOTE | 2021-10-07 10:11 | P.PN_ITS ---
Internal Medicine - PN: Subj *Date: 10/07/21 *Time: 10:11 Interval history: She is doing very well this morning. She is eating and drinking and ambulating. She is 1 day post . She is bottlefeeding. Her lochia is normal. I am seeing her for Dr. Pandey who is off today. Exam Vital signs and Labs for Last 24 Hours: Temp Pulse Resp BP Pulse Ox 98.0 F 68 16 149/92 H 99 10/06/21 12:31 10/06/21 12:31 10/06/21 09:23 10/06/21 12:31 10/06/21 09:23 Laboratory Results - last 24 hr 10/06/21 07:40: Urine Color Yellow, Urine Appearance Clear, Urine pH 7.5, Ur Specific [place] 1.015, Urine Protein Negative, Urine Glucose (UA) Negative, Urine Ketones 1+, Urine Blood Negative, Urine Nitrate Negative, Urine Bilirubin Negative, Urine Urobilinogen 0.2, Ur Leukocyte Esterase Negative, Urine RBC Occasional, Urine WBC 3-5, Ur Squamous Epith Cells Occasional, Urine Bacteria None 10/07/21 06:43: Hgb 9.6 L, Hct 29.6 L I & O for Last 24 hours: Intake & Output 10/04/21 10/05/21 10/06/21 10/07/21 11:59 11:59 11:59 11:59 Intake Total 2500 / 2500 0 / 0 Output Total 300 / 300 Balance 2200 / 2200 0 / 0 Weight 189 lb Microbiology Reports for the Last 24 Hours: Microbiology 10/06/21 05:25 Urine,Clean Catch Urine Culture - Preliminary NO GROWTH AFTER 24 HOURS - Constitutional no acute distress - *Routine HEENT Exam Head: Present: normocephalic Eye: Present: EOMI, PERRL ENT: Present: mucous membranes moist Assessment and Plan (1) 38 weeks gestation of Status: Acute Category: Medical Code(s): Z3A.38 - 38 weeks gestation of (2) Gestational hypertension Status: Acute Category: Medical Code(s): O13.9 - Gestational [- induced] hypertension without significant proteinuria, unspecified trimester (3) growth restriction Problem details: 7% Status: Acute Category: Medical (4) Anemia affecting Status: Acute Category: Medical Code(s): O99.019 - Anemia complicating , unspecified trimester (5) Rh negative status during Problem details: genetic testing shows Rh negative fetus Status: Acute Category: Medical Code(s): O26.899 - Other specified related conditions, unspecified trimester; Z67.91 - Unspecified blood type, Rh negative - Assessment and plan all Dx Assessment and Plan for all problems:: She continues to do well this morning. Her pain is well controlled. She did get a T AP block yesterday. Her lochia is normal. She is bottlefeeding. We will plan to send her home tomorrow.
[2021-10-07 19:56] VITALS: BP 101/61; PULSE 83; RESP 17; TEMP 36.7; O2SAT 100
[2021-10-08 03:39] VITALS: BP 115/59; PULSE 78; RESP 17; TEMP 37; O2SAT 98
[2021-10-08 08:00] VITALS: BP 107/60; PULSE 75; RESP 20; TEMP 36.8; O2SAT 99
--- NOTE | 2021-10-08 12:36 | [facility].DCSUM ---
General - General Admission date:: 10/06/21 Discharge date: 10/08/21 HPI HPI: 26 yo G1 @ 38 01/04 complicated by gestational hypertension and growth restriction current estimate of EFW 7% CPD on exam and patient declined a trial of labor Rh negative maternal status but rhogam deferred because cell free DNA showed negative rh mild anemia on admission Hospital Course Hospital Course: postop course uneventful tolerating regular diet ambulating and voiding without difficulty lochia less than menses desires discharge home today Rhogam Administration: Not Indicated Objective Vital signs: Temp Pulse Resp BP Pulse Ox 98.3 F 75 20 107/60 L 99 10/08/21 08:00 10/08/21 08:00 10/08/21 08:00 10/08/21 08:00 10/08/21 08:00 Narrative: CONSTITUTIONAL: no acute distress HEENT: mucous membranes moist PULMONARY: breathing unlabored without audible wheezes CV: no tachycardia or visible JVD; normal LE peripheral pulses ABD: soft, ND; appropriately tender but no rebound/guarding : fundus firm at/below umbilicus SKIN: incision well approximated with no drainage, erythema or induration EXT: 1+ edema LEs NEURO: alert/oriented, no altered mental status PSYCH: appropriate mood and demeanor DS: Diagnosis - Discharge Diagnosis (1) 38 weeks gestation of Status: Acute (2) Gestational hypertension Status: Acute (3) growth restriction Status: Acute Problem details: 7% (4) Anemia affecting Status: Acute (5) Rh negative status during Status: Acute Problem details: genetic testing shows Rh negative fetus (6) CPD (cephalo-pelvic disproportion) Status: Acute Discharge Plan - Patient Discharge Instructions ACTIVITY: Continue current activity DIET: regular diet Additional Instructions: NOTHING IN VAGINA FOR 6 WEEKS NO HEAVY LIFTING OR STRENUOUS ACTIVITY NO DRIVING WHILE TAKING PAIN MEDICATION FOLLOW-UP WITH DR. LEHMAN ON Patient Instructions: Depression, Hemorrhage, DI for , DI for Pre-eclampsia, [facility] Post Discharge Instructions, Preventing the Spread of Coronavirus Discharge Instructions - Follow up Plan Follow up with: Marisabel Lehman MD [Staff Physician] - 10/26/21 9:45 am Disposition: Home, Self-Care Condition at discharge:: Stable Home Medications: Home Medications Medication Instructions Recorded Confirmed Type ondansetron 4 mg disintegrating 4 mg PO Q4H PRN #30 tab 03/06/21 10/06/21 Rx tablet docosahexaenoic acid 200 mg capsule 200 mg PO DAILY 05/05/21 10/06/21 History Labetalol HCl 100 mg PO BID 10/06/21 10/06/21 History Ibuprofen [Motrin 400mg 800 mg PO Q6HP PRN #40 tab 10/08/21 Rx tablet] Oxycodone HCl [OxyIR 5mg tablet] 5 mg PO Q6HP PRN #24 tablet 10/08/21 Rx Prescriptions/Medication Reconciliation: New Acetaminophen [Acetaminophen 325mg tab] 650 mg PO Q4HP PRN tablet PRN Reason: Mild Pain Oxycodone HCl [OxyIR 5mg tablet] 5 mg PO Q6HP PRN #24 tablet PRN Reason: Moderate Pain Ibuprofen [Motrin 400mg tablet] 800 mg PO Q6HP PRN #40 tab PRN Reason: Mild To Moderate Pain Continued ondansetron 4 mg disintegrating tablet 4 mg PO Q4H PRN #30 tab PRN Reason: nausea and vomiting docosahexaenoic acid 200 mg capsule 200 mg PO DAILY Discontinued Labetalol HCl 100 mg PO BID - Problem Reconciliation Problems Reviewed?: Yes
== END 2021-10-08 14:05 | disposition home or self-care (01) | DRG 788 ==
PROVIDERS: Admitting Provider Obstetrics & Gynecology; PCP Family Medicine; Visit Provider Obstetrics & Gynecology
PROC: 10D00Z1 Extraction of Products of Conception, Low, Open Approach (ICD-10-PCS; CPT 59514; principal; 2021-10-06 07:30)
DX: O13.4 Gestational [pregnancy-induced] hypertension without significant proteinuria, complicating childbirth (principal); Z3A.38 38 weeks gestation of pregnancy; Z37.0 Single live birth; O36.5930 Maternal care for other known or suspected poor fetal growth, third trimester, not applicable or unspecified; O65.8 Obstructed labor due to other maternal pelvic abnormalities; O69.81X0 Labor and delivery complicated by cord around neck, without compression, not applicable or unspecified
CPT/HCPCS: 59514; 36415; 59025; 80048; 80053; 80305; 81001; 85014; 85018; 85025; 86850; 87086; 94761; C9290; C9803; G0283; J2405; U0003; U0005